=== PATIENT | female | born 1965 | race African-American/Black ===

== ENCOUNTER → 2016-07-08 | Outpatient (CLI) | payer OTHER ==
--- NOTE | 2016-07-08 15:10 | RAD ---
Gastric emptying study History: Abdominal pain and nausea. Procedure: Serial static anterior planar images are obtained over the stomach for one hour following oral administration of 2 mCi of 99 M technetium sulfur colloid in a solid test meal. Findings: The stomach demonstrates delayed emptying into the small bowel without evidence of reflux in the area the esophagus. The gastric emptying half time is 169 minutes (normal is 66 +/- 22 minutes). Impression: Delayed gastric emptying.
== END | disposition home or self-care (01) ==
LOC: NM 07:29
PROVIDERS: ATTEND Internal Medicine Gastroenterology
DX: R10.13 Epigastric pain (principal); R11.0 Nausea
CPT/HCPCS: 78264; A9541